=== PATIENT | male | born 1955 | race Caucasian/White ===

== ENCOUNTER → 2017-01-24 | Outpatient (CLI) | payer OTHER ==
--- NOTE | 2017-01-24 09:27 | DI ---
HISTORY: Right knee pain with weight bearing. COMPARISON: None available. FINDINGS: Examination of the right knee reveals mild soft tissue swelling and some degenerative arth ritic changes with narrowing of the medial joint space. There is no evidence of recent fracture or d islocation. IMPRESSION: 1. Mild soft tissue swelling and some degenerative arthritic changes with narrowing of the medial steffi nt space. 2. No evidence of recent fracture or dislocation.
--- NOTE | 2017-01-24 09:29 | DI ---
HISTORY: Low back pain with weight bearing. COMPARISON: 03/10/2013. FINDINGS: Examination of the lumbar spine reveals mild levoscoliosis of the mid lumbar spine and fir st degree spondylolisthesis of L5 on S1 and spondylolysis of L5. There is slight narrowing of the in tervertebral disc spaces between L1/L2 and L3/L4 with associated mild hypertrophic spurring suggestin g degenerative discogenic changes. IMPRESSION: 1. Mild levoscoliosis of the mid lumbar spine and first degree spondylolisthesis of L5 on S1 and spon dylolysis of L5. 2. There is slight narrowing of the intervertebral disc spaces between L1/L2 and L3/L4 with associate d mild hypertrophic spurring suggesting degenerative discogenic changes.
== END ==
LOC: RAD 07:15
PROVIDERS: ATTEND Internal Medicine Pulmonary Disease
DX: M54.5 Low back pain (principal); M25.561 Pain in right knee; M48.06 Spinal stenosis, lumbar region; M43.17 Spondylolisthesis, lumbosacral region; M17.11 Unilateral primary osteoarthritis, right knee
CPT/HCPCS: 72100; 73560